=== PATIENT | male | born 1965 | race Caucasian/White ===

== ENCOUNTER → 2025-02-23 09:30 | Outpatient (BNVA) | payer OTHER, SELFPAY | PROVIDERS: PCP Family Medicine; Visit Provider Family Medicine | DX: E11.9 Type 2 diabetes mellitus without complications (principal) | CPT/HCPCS: 85025 ==

== ENCOUNTER 2025-02-25 08:11 | Outpatient (CLI) | payer OTHER, SELFPAY ==
[2025-02-25 08:32] LABS: Basophils # 0.1 10^3/uL (0.0-0.1); Basophils % 0.9 %; Eosinophils # 0.5 10^3/uL (0.0-0.8); Eosinophils % 5.9 %; Hematocrit 44.4 % (37-53); Lymphocytes # 2.9 10^3/uL (0.8-4.8); Lymphocytes % 33.8 %; Mean Corpuscular HGB Conc 32.9 g/dL (30-55); Mean Corpuscular Hemoglobin 31.5 pg (27-33); Mean Corpuscular Volume 95.9 fl (82-101); Mean Platelet Volume 9.8 fL (7.4-10.4); Monocytes # 0.7 10^3/uL (0.2-0.9); Monocytes % 8.3 %; Neutrophils % 50.7 %; Nucleated Red Blood Cells % 0 %; Platelet Count 177 10^3/cmm (157-399); Red Blood Count 4.63 10^6/uL (3.85-5.65); Red Cell Distribution Width 11.8 % (12.1-15.1); White Blood Count 8.47 10^3/uL (3.29-11.43)
[2025-02-25 08:53] LABS: Creatinine Urine, Random 19 mg/dL (39-259); Microalbumin Random Urine 1 ug/dL (0-20)
[2025-02-25 08:55] LABS: Estmated Average Glucose 154
[2025-02-25 09:01] LABS: Microalbum Creatinine Ratio Ur 53 mg/dL (0-20)
[2025-02-25 09:04] LABS: Alanine Aminotransferase 34 U/L (0-41); Albumin Level 4.3 g/dL (3.5-5.2); Alkaline Phosphatase 60 U/L (40-130); Anion Gap 15.5 (5-19); Aspartate Amino Transferase 22 U/L (0-40); Blood Urea Nitrogen 14 mg/dL (6-20); Calcium 9.7 mg/dL (8.5-10.5); Carbon Dioxide 23 mmol/L (22-29); Chloride 99 mmol/L (98-107); Chol HDL Ratio 4.22 mg/dL (1.0-5.00); Cholesterol 135 mg/dL (0-200); Free T4 Free Thyroxine 1.43 ng/dL (0.82-1.77); Globulin 2.5 g/dL (1.3-4.6); Glucose 145 mg/dL (65-115); HDL Cholesterol 32 mg/dL (60-100); LDL Cholesterol Calculated 79 mg/dL (50-129); LDL HDL Ratio 2.47 RATIO (0.00-3.22); Osmolality Calculated 279 mOsm/kg (285-295); Potassium 4.5 mmol/L (3.5-5.1); Sodium 133 mmol/L (136-145); Thyroid Stimulating Hormone 2.08 uIU/mL (0.27-4.20); Total Bilirubin 0.5 mg/dL (0.15-1.2); Total Protein 6.8 g/dL (6.6-8.7); Triglycerides 120 mg/dL (0-150)
== END 2025-02-25 08:12 | disposition home or self-care (01) ==
PROVIDERS: PCP Family Medicine; Visit Provider Internal Medicine
DX: I10 Essential (primary) hypertension (principal); E11.9 Type 2 diabetes mellitus without complications
CPT/HCPCS: 80053; 80061; 82044; 83036; 84439; 84443; 85025

== ENCOUNTER 2025-07-14 08:24 | Outpatient (CLI) | payer OTHER, SELFPAY ==
--- NOTE | 2025-07-14 08:33 | XRR_ITS ---
PROCEDURE INFORMATION: Exam: XR Right Shoulder Exam date and time: 07/14/2025 8:48 AM Age: 59 years old Clinical indication: Pain; Shoulder; Right; Additional info: Suspected rotator cuff tear TECHNIQUE: Imaging protocol: Radiologic exam of the right shoulder. Views: 2 or more views. COMPARISON: No relevant prior studies available. FINDINGS: Bones/joints: No acute fracture or dislocation. Mild cortical irregularity along the greater tubercle. Soft tissues: Normal. XR/XR shoulder RT min 2V* 06100 IMPRESSION: 1. No acute osseous findings. 2. Mild cortical irregularity along the greater tubercle can be seen with chronic rotator cuff insufficiency. MRI could be considered for further evaluation if there is concern for rotator cuff pathology.
--- NOTE | 2025-07-14 08:33 | XRR_ITS ---
PROCEDURE INFORMATION: Exam: XR Left Hip Exam date and time: 07/14/2025 8:48 AM Age: 59 years old Clinical indication: Hip pain; Left hip; Additional info: L hip pain TECHNIQUE: Imaging protocol: Radiologic exam of the left hip. Views: 2 or 3 views hip with pelvis when performed. COMPARISON: No relevant prior studies available. FINDINGS: Bones/joints: No acute fracture or dislocation. Soft tissues: Unremarkable. XR/XR hip LT 2-3V wo/w pel* [id number] IMPRESSION: No acute osseous findings.
[2025-07-14 10:18] LABS: Estmated Average Glucose 151; Hemoglobin A1C 6.9 % (4.0-6.0)
[2025-07-14 10:43] LABS: Alanine Aminotransferase 45 U/L (0-41); Albumin Level 4.7 g/dL (3.5-5.2); Alkaline Phosphatase 61 U/L (40-130); Anion Gap 15.2 (5-19); Aspartate Amino Transferase 25 U/L (0-40); Blood Urea Nitrogen 15 mg/dL (6-20); Calcium 10.3 mg/dL (8.5-10.5); Carbon Dioxide 24 mmol/L (22-29); Chloride 105 mmol/L (98-107); Globulin 2.5 g/dL (1.3-4.6); Glucose 169 mg/dL (65-115); Osmolality Calculated 295 mOsm/kg (285-295); Potassium 4.2 mmol/L (3.5-5.1); Prostate Specific Antigen 0.963 ng/mL (0-4); Sodium 140 mmol/L (136-145); Total Protein 7.2 g/dL (6.6-8.7)
== END 2025-07-14 08:25 | disposition home or self-care (01) ==
PROVIDERS: PCP Family Medicine; Visit Provider Family Medicine
DX: M16.12 Unilateral primary osteoarthritis, left hip (principal); M75.101 Unspecified rotator cuff tear or rupture of right shoulder, not specified as traumatic; E11.9 Type 2 diabetes mellitus without complications; Z12.5 Encounter for screening for malignant neoplasm of prostate
CPT/HCPCS: 36415; 73030; 73502; 80053; 83036; 84153

== ENCOUNTER 2025-07-17 16:28 | Outpatient (RCR) | payer OTHER, SELFPAY | END 2025-08-06 23:59 | disposition home or self-care (01) | LOC: WPT 16:28 | PROVIDERS: PCP Family Medicine; Visit Provider Family Medicine | DX: M75.101 Unspecified rotator cuff tear or rupture of right shoulder, not specified as traumatic (principal) | CPT/HCPCS: 97110; 97161 ==

== ENCOUNTER 2025-08-11 10:36 | Outpatient (CLI) | payer OTHER, SELFPAY ==
--- NOTE | 2025-08-11 11:00 | MR_ITS ---
WS: [id number] MRI RIGHT SHOULDER HISTORY: Right shoulder pain COMPARISON: Radiograph 07/14/2025 TECHNIQUE: Multiplanar sequences of the shoulder joint are submitted. Moderate to severe AC joint arthritis. Hypertrophic osteophytes with fluid along the AC ligament. Synovial thickening. Mild encroachment upon the myotendinous portion of the supraspinatus. Mild subacromial impingement. No os acromion. Normal position of the biceps tendon in the bicipital groove. Very minimal narrowing of the glenohumeral joint. No rotator cuff muscle atrophy. There is a small amount of edema within the subscapularis muscle. Insertion site tear distal supraspinatus tendon extends over a width of 6 mm. There is more proximal supraspinatus tendinopathy. Fraying along the bursal and articular surfaces of the tendon with no retraction. Subscapularis and infraspinatus tendons are intact. Intrasubstance degeneration in the superior labrum. No tear is identified. No significant joint effusion. Abnormal appearance of the middle glenohumeral ligament. There is intermediate signal throughout the ligament. The signal abnormality within the subscapularis muscle is closely associated with the abnormal signal in the middle glenohumeral ligament. Distal middle glenohumeral ligament tear suspected. Refer to image 16 of series 501. MR/MR shoulder RT wo con* [id number] IMPRESSION: 1. Moderate to severe AC joint arthritis with encroachment upon the myotendino us portion of the supraspinatus. Additional AC joint synovitis. 2. 6 mm insertion site tear of the supraspinatus tendon. Additional more proxi mal tendinopathy and fraying along the bursal and articular surfaces of the ten don. 3. Suspect distal middle glenohumeral ligament tear. The edema within the subs capularis muscle is closely associated with the abnormal middle glenohumeral li gament.
== END 2025-08-11 10:37 | disposition home or self-care (01) ==
LOC: RAD 10:37
PROVIDERS: PCP Family Medicine; Visit Provider Orthopaedic Surgery
DX: M25.511 Pain in right shoulder (principal); M19.011 Primary osteoarthritis, right shoulder; M65.811 Other synovitis and tenosynovitis, right shoulder; M75.111 Incomplete rotator cuff tear or rupture of right shoulder, not specified as traumatic; M75.41 Impingement syndrome of right shoulder
CPT/HCPCS: 73221

== ENCOUNTER → 2025-08-30 11:03 | Outpatient (BNVA) | payer OTHER, SELFPAY | PROVIDERS: PCP Family Medicine; Visit Provider Family Medicine | DX: E11.9 Type 2 diabetes mellitus without complications (principal) | CPT/HCPCS: 80053; 80061; 82043; 83036; 85025 ==

== ENCOUNTER 2025-09-06 08:56 | Day surgery (SDC) | payer OTHER, SELFPAY ==
[2025-09-06] VITALS (8 sets, daily range): BP systolic 128–161; BP diastolic 82–104; PULSE 65–70; RESP 14–23; TEMP 36.1–36.4; O2SAT 93–98; BMI 30.1
--- NOTE | 2025-09-06 09:25 | W.PM.OPSUD ---
Surgery/Procedure H&P Update DATE OF PROCEDURE: September 06, 2025 DATE H&P PERFORMED: 08/21/25 PLANNED PROCEDURE: Operation Date: 09/06/25 10:40 Proposed Procedures p RIGHT Shoulder Arthroscopy [id number] M75.101 M12.811(Right) - Neo Burnett MD s RIGHT Rotator Cuff Repair - Open(Right) - MD julio césar Magana RIGHT Labral Repair(Right) - MD julio césar Magana Acromioplasty(Right) - Neo Burnett MD
--- NOTE | 2025-09-06 09:58 | ANES.PREANE2 ---
Pre-Anesthetic Assessment Height/Weight: Height 1.83 m Weight 100.698 kg Temp Pulse Resp BP Pulse Ox O2 Del Method 97.1 F L 67 17 152/88 98 Room Air 09/06/25 09:24 09/06/25 09:24 09/06/25 09:24 09/06/25 09:24 09/06/25 09:24 09/06/25 09:24 Operation Date: 09/06/25 10:40 Proposed Procedures p RIGHT Shoulder Arthroscopy [id number] M75.101 M12.811(Right) - Neo Burnett MD s RIGHT Rotator Cuff Repair - Open(Right) - Neo Burnett MD s RIGHT Labral Repair(Right) - Neo Burnett MD s Acromioplasty(Right) - Neo Burnett MD Familial anesthetic complications: None Was Beta Audra taken within 24 hours: N/A Was Clonidine taken within 24 hours: N/A Last intake: > 8 hrs Social Alcohol and Tobacco Exam alert, oriented x 3, clear to auscultation bilaterally and regular rate & rhythm Airway Mallampati: Class IV CV/HEM Hypertension Metabolic Diabetes Mellitus and Hyperlipidemia Anesthetic Plan ASA status: 3 Anesthesia: General and Regional (specify below) Risk of > 500 ml blood loss (7ml/kg in children): No Medications/Allergies Home Medications ?Medication ?Instructions ?Recorded ?Confirmed ?Last Taken ?Type ergocalciferol (vitamin D2) 1,250 1,250 mcg PO DAILY 12/26/24 09/05/25 09/04/25 History mcg (50,000 unit) capsule pen needle, diabetic 32 gauge x #1,200 ea 12/26/24 08/30/25 Unknown History metformin 500 mg tablet,extended 500 mg PO BID #180 tabs 01/26/25 09/05/25 09/03/25 Rx release 24 hr insulin degludec 100 unit/mL (3 15 unit (0.15 mL) SUBCUT DAILY #15 04/27/25 09/05/25 09/05/25 Rx mL) subcutaneous pen (Tresiba mL FlexTouch U-100 insulin) insulin lispro 100 unit/mL 17 unit (0.17 mL) SUBCUT TID #50 mL 04/27/25 09/05/25 09/05/25 Rx subcutaneous pen (Humalog KwikPen (U-100) Insulin) atorvastatin 40 mg tablet 40 mg PO QDAY #90 tabs 07/12/25 09/05/25 09/04/25 Rx fenofibrate nanocrystallized 145 145 mg PO QDAY #90 tabs 07/12/25 09/05/25 09/03/25 Rx mg tablet olmesartan 40 mg tablet 40 mg PO QDAY #90 tabs 07/12/25 09/05/25 09/04/25 Rx semaglutide 2 mg/dose (8 mg/3 mL) 2 mg (0.75 mL) SUBCUT Q7D 90 days 07/12/25 09/05/25 08/27/25 Rx subcutaneous pen injector (Ozempic) #9 mL blood-glucose sensor (FreeStyle #2 ea 08/17/25 08/30/25 Unknown Rx Caren 3 Plus Sensor device) hydrocortisone 1 % topical cream 1 applic topical TID PRN skin 08/21/25 09/05/25 Unknown Rx irritation #28.4 grams aspirin 81 mg PO DAILY 09/05/25 09/05/25 08/27/25 History Allergies Allergy/AdvReac Type Severity Reaction Status Date / Time celecoxib (From Celebrex) Allergy ALGY-Rash Verified 08/30/25 10:20 [facility] Anesthesia Medical History (Updated 08/30/25 @ 10:50 by Abdi Hardwick MD) Osteoarthritis of left hip Nicotine use disorder Alcohol use disorder Type 2 diabetes mellitus Hypertension Hypercholesteremia Surgical History History of cardiac ablation for atrial fibrillation History of appendectomy History of colon resection History of colostomy reversal History of bunionectomy Family History Father Congestive heart failure (CHF) Diabetes CAD (coronary artery disease) Cardiomyopathy Mother Dementia Diabetes Social History Smoking and tobacco/nicotine status: never used tobacco/nicotine Alcohol intake: current Alcohol intake frequency: 0-2 Drinks per Day Substance/Drug Use: former Anesthesia Procedures Nerve Block Nerve Block 1: Main Anesthesia: general anesthesia Time Out Performed: Yes Consent: requested by attending/covering physician, from patient, from other, risks and benefits reviewed and patient agrees to proceed Nerve block location: interscalene (Right) Anesthesia monitors applied: pulse oximetry, EKG, BP cuff and oxygen Nerve block position: semi sitting Anesthetic Used: ropivicaine 0.5% (20 ml) and with decadron (4 mg) Ultrasound used to: recognize landmarks, visualize and ID brachial plexus, in supraclavicular region and visualize and ID interscalene groove Nerve Stimulator Used?: No Interscalene/Femoral BLK: 2 stimuplex 22 g needle used for position and inplane approach, visualize local anesthetic spread and no vascular puncture identified Injection: neg aspiration of heme Patient Tolerated Procedure: well Complications: none Additional Comments: Diagnosis: post op pain
[2025-09-06] MEDS: ceFAZolin 2,000 mg SDV 2000 MG IVP (10:57)
--- NOTE | 2025-09-06 11:37 | PM.OP ---
Operative Report Date of procedure: September 06, 2025 Surgeon: Neo Burnett MD Procedure: Preoperative diagnosis: Internal derangement of the right shoulder Postoperative diagnosis: Degenerative tearing anterior superior labrum, torn rotator cuff, acromial impingement, hypertrophic bursa Procedure: Diagnostic right shoulder arthroscopy with labral debridement and rotator cuff debridement. Mini open acromioplasty bursectomy and rotator cuff repair. Surgeon: Neo Burnett MD Anesthesia: General With preoperative scalene block EBL: 5 cc Indications: Cyril is a 60-year-old white male referred in the orthopedic clinic for evaluation debilitating right shoulder pain. After clinical exam is felt the patient may have rotator cuff tear and MRI was obtained demonstrating a tear in the rotator cuff the supraspinatus region. Also demonstrated degenerative change of the labrum and therefore at this time was offered diagnostic right shoulder throbs with all indicated procedures. All risk benefits treatment alternatives were discussed with him and he is agreeable to this at this time. Procedure: After obtaining her consent preoperative scalene blocks ministered in the preop holding area. Patient then taken to the operating room placed on the operative table supine position general anesthetic administered. Once good anesthesia was achieved patient was placed over the beachchair position secured to the table and padded out appropriately. Right shoulder and arm were prepped and draped usual fashion. After surgical timeout standard posterior portals made #11 blade and camera cams placed within the glenohumeral joint line. Anterior working portals also placed distally inferior to the clavicle anteriorly. Disposable cannulas placed. Probing of the shoulder demonstrated degenerative tearing the anterior labrum and superior labrum. Biceps tendon insertion was in good repair. Biceps in good repair. Evaluation of the hiatus and just laterally demonstrated tearing the rotator cuff was helpful pull away from the bone. This too was debrided mechanical shaver. Labrum was 3 down to stable cartilage space mechanical shaver. At this point arthroscopy was discontinued. Anterior lateral incision made off the anterior edge of the acromion. Sharp dissection taken down down to subcutaneous tissue electrocautery used for hemostasis. Leg cutters used to remove the deltoid from the anterior portion of the acromion and expose the proximal acromion. Anterior hook of the acromion is identified therefore using a microsagittal saw acromioplasty was undertaken with good decompression achieved. Thickened bursa was in the area this was debrided with electrocautery until clear. Digital palpation broke up multiple adhesions subacromial. Small tear of the rotator cuff was identified. It was freshened with a small scalpel all the way down to bone. A single 2.9 juggernaut anchor was placed within the bone and impacted. Delorme anchor was then used in horizontal mattress suturing to repair of the rotator cuff. Once this is achieved show was put through range of motion and found no further damage to the rotator cuff. Shoulder was then washed closed nonsterile irrigation. Deltoid reapproximated back to the acromion with 0 Vicryl [id number] sutures. Subcutaneous tissue reapproximated 0 Vicryl interrupted sutures. Skin was closed with skin yuliet. Wounds are cleaned and dried dressed with Xeroform gauze, sterile gauze dressing, ABDs and adhesive tape. Patient was placed in abduction pillow and sling awakened and transferred to cover room in stable condition
--- NOTE | 2025-09-06 13:30 | ANE.PACU2 ---
Inpatient post-anesthesia follow up: Airway intact: Yes Vital signs: Temperature 97.6 F Pulse Rate 66 Respiratory Rate 20 Blood Pressure 153/87 Pulse Oximetry 95 Oxygen Delivery Me thod Room Air Oxygen Flow Rate Fraction of Inspir ed Oxygen Hydration adequate: Yes Nausea and vomiting: No Pain level: 1 Mental status: Baseline
== END 2025-09-06 13:30 | disposition home or self-care (01) ==
PROVIDERS: PCP Family Medicine; Visit Provider Orthopaedic Surgery
PROC: (CPT 29805; principal; 2025-09-06 10:40)
PROC: (CPT 23412; 2025-09-06 10:40)
PROC: (CPT 23412; 2025-09-06 10:40)
PROC: (CPT 23130; 2025-09-06 10:40)
DX: S43.431A Superior glenoid labrum lesion of right shoulder, initial encounter (principal); X58.XXXA Exposure to other specified factors, initial encounter; M75.101 Unspecified rotator cuff tear or rupture of right shoulder, not specified as traumatic; M75.41 Impingement syndrome of right shoulder; I10 Essential (primary) hypertension; E11.9 Type 2 diabetes mellitus without complications; E78.5 Hyperlipidemia, unspecified; Z79.4 Long term (current) use of insulin; Z79.82 Long term (current) use of aspirin; Z79.84 Long term (current) use of oral hypoglycemic drugs
CPT/HCPCS: 23412; 23130; 36416; 82962; C1713; J0690; J1100; J2704; J2795; J3010; J3490; J7030; J9999